=== PATIENT | male | born 1980 | race Caucasian/White ===

== ENCOUNTER 2024-05-18 08:45 | Outpatient (CLI) | payer MEDICAID | END 2024-05-18 23:59 | disposition home or self-care (01) | LOC: MRI 08:45 | PROVIDERS: ATTEND Podiatrist Foot & Ankle Surgery | DX: M79.672 Pain in left foot (principal); M79.671 Pain in right foot; M72.2 Plantar fascial fibromatosis; M21.42 Flat foot [pes planus] (acquired), left foot; M21.41 Flat foot [pes planus] (acquired), right foot; M65.9 Synovitis and tenosynovitis, unspecified | CPT/HCPCS: 73721 ==